=== PATIENT | female | born 1985 | race African-American/Black ===

== ENCOUNTER 2019-01-17 11:50 | Emergency (ER) | payer MEDICAID, OTHER ==
--- NOTE | 2019-01-17 12:57 | ER Document Report ---
HPI - HPI Time Seen by Provider: 01/17/19 12:24 Pain Level: 2 Context: Patient is a 34-year-old female who presents emergency department with a chief complaint of a sore throat. She is also complaining of bilateral ear pain. Her symptoms started Thursday evening. She also complains of coughing up some mucus. She took some 800 mg ibuprofen at home. She has not seen her primary care in regards to this issue. Denies any fever, vomiting, or diarrhea. - CONSTITUTIONAL Constitutional: DENIES: Fever, Chills - EENT EENT: REPORTS: Sore Throat, Ear Pain - bilateral. DENIES: Eye problems - NEURO Neurology: DENIES: Headache, Weakness, Vision blurred, Dizzinesss / Vertigo - CARDIOVASCULAR Cardiovascular: DENIES: Chest pain - RESPIRATORY Respiratory: REPORTS: Coughing. DENIES: Trouble Breathing - GASTROINTESTINAL Gastrointestinal: DENIES: Abdominal Pain, Black / Bloody Stools - URINARY Urinary: DENIES: Dysuria, Urgency, Frequency - REPRODUCTIVE Reproductive: DENIES: : - MUSCULOSKELETAL Musculoskeletal: DENIES: Extremity pain Past Medical History - Social History Smoking Status: Never Smoker Chew tobacco use (# tins/day): No Frequency of alcohol use: Occasional Drug Abuse: None Family History: Reviewed & Not Pertinent Patient has suicidal ideation: No Patient has homicidal ideation: No Renal/ Medical History: Denies: Hx Peritoneal Dialysis Vertical Provider Document - CONSTITUTIONAL Agree With Documented VS: Yes Exam Limitations: No Limitations - INFECTION CONTROL TRAVEL OUTSIDE OF THE [place] IN LAST 30 DAYS: No - HEENT HEENT: Atraumatic, Normocephalic, Pharyngeal Tenderness, Pharyngeal Erythema, Tympanic Membrane Bulging - Right. negative: Pharyngeal Exudate Notes: Edema and erythema noted to external auditory canal. - NECK Neck: Normal Inspection, Supple - RESPIRATORY Respiratory: Breath Sounds Normal, No Respiratory Distress - CARDIOVASCULAR Cardiovascular: Regular Rate, Regular Rhythm Pulses: Normal: Radial - GI/ABDOMEN Gastrointestinal: Abdomen Soft - BACK Back: Normal Inspection - MUSCULOSKELETAL/EXTREMETIES Musculoskeletal/Extremeties: FROM - NEURO Level of Consciousness: Awake, Alert, Appropriate Motor/Sensory: No Motor Deficit, No Sensory Deficit - DERM Integumentary: Warm, Dry Course - Re-evaluation Re-evalutation: 01/17/19 12:58 Patient has edema and erythema noted to bilateral external auditory canals, instructional support assistant with otitis externa. She also does have purulence noted to her tympanic membrane. She will be started on amoxicillin and Ciprodex. She will also be given Mucinex to help with her symptoms. She will take ibuprofen and acetaminophen for pain relief. I do not suspect the patient has mastoiditis. - Vital Signs Vital signs: Temp Pulse Resp BP Pulse Ox 98.8 F 93 18 151/72 H 95 01/17/19 11:55 01/17/19 11:55 01/17/19 11:55 01/17/19 11:55 01/17/19 11:55 Discharge - Discharge Clinical Impression: Otitis media Qualifiers: Otitis media type: mucoid Chronicity: acute Laterality: right Qualified Code(s): H65.111 - Acute and subacute allergic otitis media (mucoid) (sanguinous) (serous), right ear Otitis externa Qualifiers: Otitis externa type: noninfectious Noninfectious otitis externa type: unspecified noninfectious type Chronicity: acute Laterality: bilateral Qualified Code(s): H60.503 - Unspecified acute noninfective otitis externa, bilateral Condition: Stable Disposition: HOME, SELF-CARE Additional Instructions: You were seen today in the emergency department for a sore throat. You have an inner and outer ear infection. Please take your medications as prescribed. Please follow-up with your primary care provider in regards to this visit. You can take ibuprofen and Tylenol as needed for pain. If you have worsening symptoms, shortness of breath, difficulty breathing, or have any symptoms that are worrisome to you, please return to the emergency department. Prescriptions: Amoxicillin Trihydrate [Amoxil 875 mg Tablet] 1 tab PO BID #20 tablet Ciprofloxacin HCl/Dexameth [Ciprodex Otic Suspension 7.5 ml Bottle] 4 drop OT BID #1 bottle Guaifenesin [Mucinex] 1,200 mg PO BID #14 [id number]
[2019-01-17 13:06] VITALS: BP 149/72
== END 2019-01-17 13:05 | disposition home or self-care (01) ==
LOC: ER 11:50
DX: H65.111 Acute and subacute allergic otitis media (mucoid) (sanguinous) (serous), right ear (principal); H60.503 Unspecified acute noninfective otitis externa, bilateral; J02.9 Acute pharyngitis, unspecified; H92.03 Otalgia, bilateral; R05 Cough; Z79.899 Other long term (current) drug therapy
CPT/HCPCS: 87070; 87077; 87880; 99283